=== PATIENT | male | born 1960 | race Caucasian/White ===

== ENCOUNTER → 2018-04-19 02:21 | Outpatient (CLI) | payer MEDICAID, SELFPAY ==
--- NOTE | 2018-04-19 12:43 | DI.REPORT_ITS ---
SYMPTOMS/DIAGNOSIS: KIDNEY STONES, N20.0, F/U STONES FLAT PLATE ABDOMEN: Comparison is 04/17/17. Large portions of the kidneys are obscured by overlying bowel. No urinary tract calculi are seen. There is a large amount of stool throughout the colon suggesting constipation. No organomegaly is seen. The visualized lung bases are clear. Degenerative changes are seen throughout the spine. Arterial calcifications are seen in the pelvis. IMPRESSION: No urinary tract calculi identified.
== END ==
PROVIDERS: PCP Family Medicine; Visit Provider Urology
DX: N20.0 Calculus of kidney (principal); K59.00 Constipation, unspecified
CPT/HCPCS: 74018

== ENCOUNTER 2018-05-20 02:22 | Outpatient (CLI) | payer MEDICAID, SELFPAY ==
[2018-05-20 11:07] LABS: Cholesterol 290 mg/dL (50-200); HDL Cholesterol 46 mg/dL (40-60); LDL CHOLESTEROL 184 mg/dL (<100); Triglyceride 311 mg/dL (30-150)
[2018-05-20 11:17] LABS: Hemoglobin A1C 10.8 % (4.5-6.2)
[2018-05-21 08:58] LABS: PSA, Screening 0.9 ng/ml (0-3.5)
== END 2018-05-20 02:42 ==
PROVIDERS: PCP Family Medicine; Visit Provider Family Medicine
DX: E11.39 Type 2 diabetes mellitus with other diabetic ophthalmic complication (principal); Z12.5 Encounter for screening for malignant neoplasm of prostate; Z13.220 Encounter for screening for lipoid disorders
CPT/HCPCS: 36415; 80061; 83721; 84153; 83036

== ENCOUNTER 2018-12-03 11:13 | Outpatient (CLI) | payer MEDICAID, SELFPAY ==
[2018-12-03 12:46] LABS: Hemoglobin A1C 11.2 % (4.5-6.2)
[2018-12-03 13:20] LABS: Anion Gap 8.9 mmol/L (3-11); BUN 37 mg/dL (7-18); CO2 30.1 mmol/L (21.0-32.0); CREATININE 2.57 mg/dL (0.70-1.30); Calcium 9.4 mg/dL (8.5-10.1); Chloride 97 mmol/L (98-107); Estimated GFR 26.01 (mL/min/1.73m2); Glucose 346 mg/dL (70-100); Potassium 3.9 mmol/L (3.5-5.1); Sodium 136 mmol/L (136-145)
== END 2018-12-03 11:33 ==
PROVIDERS: PCP Family Medicine; Visit Provider Family Medicine
DX: E11.9 Type 2 diabetes mellitus without complications (principal)
CPT/HCPCS: 36415; 80048; 83036

== ENCOUNTER 2019-06-03 10:33 | Outpatient (CLI) | payer MEDICAID, SELFPAY | END 2019-06-03 10:53 | PROVIDERS: PCP Family Medicine; Visit Provider Family Medicine | DX: E11.9 Type 2 diabetes mellitus without complications (principal) | CPT/HCPCS: 36415; 83036 ==

== ENCOUNTER 2021-11-21 11:35 | Emergency (ER) | payer MEDICAID, SELFPAY ==
[2021-11-21 11:50] VITALS: BP 184/92; PULSE 60; RESP 14; TEMP 36.5; O2SAT 98
[2021-11-21 12:09] VITALS: BP 170/82; PULSE 60; RESP 19; TEMP 36.5; O2SAT 97
--- NOTE | 2021-11-21 12:51 | DI.CT_ITS ---
Exam(s) CT HEAD WO EXAM: CT HEAD WO CLINICAL HISTORY: trauma, scalp hematoma. TECHNIQUE: Imaging Protocol: Axial computed tomography images with coronal and sagittal reformatted images were created and reviewed COMPARISON: No exams were available for comparison FINDINGS: There are no skull fractures nor fluid in the visualized paranasal sinuses. Some mucosal thickening is noted in both maxillary sinuses but no associated fluid levels. Of the paranasal sinuses as well as mastoid air cells are clear bilaterally There is no evidence of intracranial hemorrhage, mass effect, or shift of midline structures. There are no extra-axial fluid collections. The ventricles are not enlarged or shifted and there is no blo od within the ventricular system nor within the basal cisterns. Calcification is noted within both vertebral arteries at the skull base. Also within supraclinoid as pects of the internal carotid arteries. IMPRESSION: No acute intracranial findings on this noninfused CT scan of the brain. Vascular calcification in vertebral arteries the skull base is noted. RADIATION DOSE DELIVERED: 718.8mGy.cm Total DLP DATA REPOSITORY: All CT scans at this facility are submitted to the National Radiology Data Registry (NRDR) Dose Index Registry (DIR) with the [employer] ([employer]). RADIATION OPTIMIZATION: All CT scans at this facility use at least one of these dose optimization te chniques: automated exposure control; mA and/or kV adjustment per patient size (includes targeted exa ms where dose is matched to clinical indication); or iterative reconstruction.
[2021-11-21 13:26] VITALS: BP 186/76; PULSE 60; RESP 16; TEMP 36.6; O2SAT 98
[2021-11-21 13:30] VITALS: BP 186/76; PULSE 60; RESP 16; TEMP 36.6; O2SAT 98
--- NOTE | 2021-11-29 12:27 | ED.GENADUL_ITS ---
Discharge Plan Disposition Patient Disposition: HOME Condition: Stable Discharge Details Clinical Impression: Head injury Primary Care Provider: German Chaudhry ED Provider: Yecenia Richter Home Meds and New Rx's Prescriptions: Continued (DME) FreeStyle Lite Strips 1 EACH strip 1 strip Miscellaneous BID AND PRN 0RF Rx Instructions: DX:250. (DME) lancets 1 EACH misc 1 ea Intradermal BID AND PRN 0RF Rx Instructions: DX:250. amlodipine [Norvasc] 5 mg tablet 5 mg PO DAILY Qty: 90 0RF Jardiance 10 mg tablet 10 mg PO DAILY Qty: 90 0RF hydrochlorothiazide 12.5 mg capsule 12.5 mg PO DAILY Qty: 90 0RF glipizide 10 mg tablet 10 mg PO BID Qty: 180 0RF atorvastatin 40 mg tablet 40 mg PO DAILY Qty: 90 0RF Januvia 100 mg tablet 100 mg PO DAILY Qty: 90 0RF metoprolol succinate 100 mg tablet extended release 24 hr 100 mg PO DAILY Qty: 90 0RF Discharge Instructions Instructions: Head Injury (ED) Additional Instructions: Please return immediately to the emergency department if you develop any new or worsening symptoms, if your condition does not improve as expected, or if you become otherwise concerned. It is extremely important that you call soon as possible to make an appointment to be seen in follow-up for this visit by your primary care doctor. Referrals: German Chaudhry MD [Primary Care Provider] - Discharge Data Discharge Date/Time-TO BE ENTERED AT DEPARTURE: 11/21/21 13:30 Medical Decision Making Marty Denis is a 61 y/o man with h/o HLD, HTN, DM presenting to the emergency department with head injury. Pt reports that at approx 9a he was walking on stairs when he backwards 1-2 steps and hit the back of his head on cement. He had no LOC, remembers the event in it's entirety. No vomiting. Was previously well and in his usual state of health. Pt reports that fall was mechanical from stepping wrong and losing his balance, no preceding symptoms. Reports mild headache, states that he came to ED for lasrge bump on the back of his head after fall. Denies any other symptoms: no other pain, fever, SOB, cough, numbness, weakness, vomiting, diarrhea, skin wound or rash. Has been walking and going about his acitivites since fall without issue. On exam she is very well and nontoxic-appearing. There is a large hematoma to the left occiput. No other skin signs of trauma to the face or scalp. No cervical spine tenderness palpation. Moving all extremities equally, walking without issue. Concern for skull fracture, other intracranial trauma, concussi on. Exam/history at this time is not consistent with cervical spine or other spinal injury, significant injury to the thorax or abdomen, significant injury to the extremities, significant injury to the face, nonmechanical etiology of fall e.g. syncope/presyncope/CVA. Plan for CT head. CT head negative. Patient reports that he feels well and would like to go home. I had a discussion with Patient regarding return to emergency department precautions, home care, and importance of outpatient follow-up. Pt verbalizes understanding of the plan and is amenable. Patient discharged to home with clear plan for outpatient follow-up. All questions were answered. Disposition decision was made weighing the risks and benefits of hospitalization versus outpatient treatment, the risk for further decompensation, and the patient's wishes. Medical Records Medical records reviewed: Yes I reviewed the patient's medical records. Imaging Data Radiologic Study: Attestation: I personally reviewed and interpreted this imaging study as follows: Radiologist's impression: EXAM: ? CT HEAD WO CLINICAL HISTORY: ? trauma, scalp hematoma. ? TECHNIQUE:? Imaging Protocol: Axial computed tomography images with coronal and sagittal reformatted images were created and reviewed COMPARISON:? No exams were available for comparison FINDINGS: ?There are no skull fractures nor fluid in the visualized paranasal sinuses.? Some mucosal thickening is noted in both maxillary sinuses but no associated fluid levels.? Of the paranasal sinuses as well as mastoid air cells are clear bilaterally There is no evidence of intracranial hemorrhage, mass effect, or shift of midline structures.? There are no extra-axial fluid collections.? The ventricles are not enlarged or shifted and there is no blood within the ventricular system nor within the basal cisterns. Calcification is noted within both vertebral arteries at the skull base.? Also within supraclinoid aspects of the internal carotid arteries. IMPRESSION: No acute intracranial findings on this noninfused CT scan of the brain. Vascular calcification in vertebral arteries the skull base is noted. HPI General Date/Time Provider Initiated Documentation: 11/21/21 11:55 . Limitations to Documentation: no limitations . Information obtained by: patient, RN notes reviewed and old records reviewed . HPI Narrative: Marty Denis is a 61 y/o man with h/o HLD, HTN, DM presenting to the e mergency department with head injury. Pt reports that at approx 9a he was walking on stairs when he backwards 1-2 steps and hit the back of his head on cement. He had no LOC, remembers the event in it's entirety. No vomiting. Was previously well and in his usual state of health. Pt reports that fall was mechanical from stepping wrong and losing his balance, no preceding symptoms. Reports mild headache, states that he came to ED for lasrge bump on the back of his head after fall. Denies any other symptoms: no other pain, fever, SOB, cough, numbness, weakness, vomiting, diarrhea, skin wound or rash. Has been walking and going about his acitivites since fall without issue. Related Data Home Medications Medication Instructions Recorded Confirmed blood sugar diagnostic (FreeStyle strip 12/24/12 11/25/21 Lite Strips) lancets 28 gauge ea 12/24/12 11/25/21 amlodipine 5 mg tablet (Norvasc) 5 mg PO DAILY #90 tab-cap 10/29/21 11/25/21 empagliflozin 10 mg tablet 10 mg PO DAILY #90 tab 10/29/21 11/25/21 (Jardiance) hydrochlorothiazide 12.5 mg capsule 12.5 mg PO DAILY #90 tab-cap 10/29/21 11/25/21 atorvastatin 40 mg tablet 40 mg PO DAILY #90 tab 11/04/21 11/25/21 glipizide 10 mg tablet 10 mg PO BID #180 tab-cap 11/04/21 11/25/21 metoprolol succinate 100 mg 100 mg PO DAILY #90 tab-cap 11/04/21 11/25/21 tablet,extended release 24 hr sitagliptin 100 mg tablet (Januvia) 100 mg PO DAILY #90 tab-cap 11/04/21 11/25/21 Previous Rx's Medication Instructions Recorded amlodipine 5 mg tablet (Norvasc) 5 mg PO DAILY #90 tab-cap 10/29/21 empagliflozin 10 mg tablet 10 mg PO DAILY #90 tab 10/29/21 (Jardiance) hydrochlorothiazide 12.5 mg capsule 12.5 mg PO DAILY #90 tab-cap 10/29/21 atorvastatin 40 mg tablet 40 mg PO DAILY #90 tab 11/04/21 glipizide 10 mg tablet 10 mg PO BID #180 tab-cap 11/04/21 metoprolol succinate 100 mg 100 mg PO DAILY #90 tab-cap 11/04/21 tablet,extended release 24 hr sitagliptin 100 mg tablet (Januvia) 100 mg PO DAILY #90 tab-cap 11/04/21 Allergies Allergy/AdvReac Type Severity Reaction Status Date / Time No Known Allergies Allergy Verified 11/25/21 10:27 General Stated Complaint: HeadInjury CARLEEN: 3 Review of Systems Narrative: Constitutional: denies fevers Eyes: denies eye pain ENT: denies ear pain, dental pain, sore throat Cardiovascular: denies chest pain, edema Respiratory: denies SOB, cough GI: denies abdominal pain, vomiting, diarrhea : denies flank pain MSK: denies back pain, neck pain, arthralgias, myalgias Skin: denies rash Neuro: denies numbness, weakness, reports mild headache PFSH All Active Problems (Updated 11/21/21 @ 13:24 by Yecenia Richter MD) Head injury (Acute) Vision loss, bilateral (Acute) Well adult (Acute) Noncompliance (Acute) History of cataract removal with insertion of prosthetic lens (Acute) Dermatitis, seborrheic (Chronic) Renal impairment (Chronic 06/30/13) Obesity (Chronic) Nonproliferative diabetic retinopathy (Chronic 07/29/14) Neuropathy in diabetes (Chronic) Hyperlipidemia (Chronic) Hyperkalemia (Chronic 06/30/13) Essential hypertension (Chronic 06/27/13) Diabetes mellitus with ophthalmic manifestations, controlled (Chronic 08/31/08) Kidney stones (Chronic) Medical History (Updated 11/21/21 @ 13:24 by Yecenia Richter MD) kidney stone (09/16/16) Surgical History Extraction of cataract (~01/2009) Family History Sister Migraine Social History Smoking/Tobacco Use Status: Never Smoking risk assessment performed?: Yes Alcohol Intake: current Alcohol Intake frequency: holidays/special occasions only Alcohol type: beer Do you feel safe at home: Yes Do you feel safe in your relationship?: Yes Exam Narrative Exam Narrative: Constitutional: well and [id number], pleasant, conversing normally HENT: head normocephalic, large hematoma noted to left occipital area, no crepitus, no skin wound, mucous membranes moist Eyes: conjunctiva normal, sclera normal, pupils 3mm b/l Neck: no stridor, full painless ROM, trachea midline, no cervical spine or paraspinal tenderness palpation Chest: normal inspection Resp: normal work of breathing, LCTAB Cardio: normal rate, normal rhythm, no murmur appreciated GI: abdomen soft, non-tender, non-distended Back: normal inspection, no rash Skin: warm, dry, normal color, no rash Neuro: alert, not altered, grossly non-focal, normal tone Ext:, Moving all extremities equally Psych: normal mood, normal affect, normal behavior Course Vital Signs Vital signs: Vital Signs Temperature 36.5 C 11/21/21 11:50 Pulse 60 11/21/21 11:50 Respiratory Rate 14 11/21/21 11:50 Blood Pressure 184/92 H 11/21/21 11:50 Pulse Oximetry 98 11/21/21 11:50 Temperature 36.6 C 11/21/21 13:30 Temperature Source Temporal Artery Scan 11/21/21 13:26 Pulse 60 11/21/21 13:30 Respiratory Rate 16 11/21/21 13:30 Respiratory Effort Non-Labored 11/21/21 12:10 Respiratory Depth Normal 11/21/21 11:57 Respiratory Pattern Normal 11/21/21 11:57 Blood Pressure 186/76 H 11/21/21 13:30 Pulse Oximetry 98 11/21/21 13:30 Oxygen Delivery Method Room Air 11/21/21 13:26 Oxygen Flow Rate 0 11/21/21 13:26 Pain Level 0 11/21/21 13:30
== END 2021-11-21 13:30 | disposition home or self-care (01) ==
PROVIDERS: Emergency Provider Student in an Organized Health Care Education/Training Program; PCP Family Medicine
DX: S09.8XXA Other specified injuries of head, initial encounter (principal); W10.8XXA Fall (on) (from) other stairs and steps, initial encounter; S00.03XA Contusion of scalp, initial encounter
CPT/HCPCS: 99284; 70450; 99283

== ENCOUNTER 2021-12-20 02:05 | Outpatient (CLI) | payer MEDICAID, SELFPAY ==
[2021-12-20 11:41] LABS: Anion Gap 11.2 mmol/L (3-11); BUN 70 mg/dL (7-18); CO2 27.8 mmol/L (21.0-32.0); Calcium 8.9 mg/dL (8.5-10.1); Calculated LDL 63 mg/dL (<100); Chloride 105 mmol/L (98-107); Cholesterol 124 mg/dL (<200); Estimated GFR 10.06 (mL/min/1.73m2); Glucose 107 mg/dL (74-106); HDL Cholesterol 48 mg/dL (40-60); Potassium 4.4 mmol/L (3.5-5.1); Sodium 144 mmol/L (136-145); Triglyceride 69 mg/dL (<150)
[2021-12-20 11:53] LABS: CREATININE 5.8 mg/dL (0.70-1.30)
== END 2021-12-20 02:06 | disposition home or self-care (01) ==
LOC: LBO 02:05
PROVIDERS: PCP Family Medicine; Visit Provider Family Medicine
DX: E87.1 Hypo-osmolality and hyponatremia (principal); E78.5 Hyperlipidemia, unspecified
CPT/HCPCS: 36415; 80048; 80061

== ENCOUNTER → 2022-01-04 01:07 | Outpatient (CLI) | payer MEDICAID, SELFPAY ==
--- NOTE | 2022-01-04 07:45 | DI.US_ITS ---
Exam(s) US RENAL EXAM: US RENAL CLINICAL HISTORY: esrd, renal failure, acute on chronic, N17.9, N18.9 TECHNIQUE: Ultrasound of both kidneys performed using standard protocol. COMPARISON: US RENAL ULTRASOUND (P) from 03/04/2009 CT RENAL COLIC WO CONTRAST from 09/16/2016 FINDINGS: RIGHT KIDNEY: Measures 10 cm in length. No cysts evident. Normal cortical thickness and corticomedullary differenti ation .No solid masses There is a 3 millimeter echogenic focus in the lower pole calyx consistent with a small calculus. LEFT KIDNEY: Measures 9.1 cm in length. No cysts evident. Normal cortical thickness and corticomedullary differen tiaion. No solids masses. There is an 8 millimeter echogenic focus towards the upper pole consistent with probable calculus. URINARY BLADDER: Prevoid volume is 181 cc Postvoid volume is 34 cc Prostate gland is mildly enlarged No evidence of bladder mass nor diverticuli. Ureterovesical jets: Not identified IMPRESSION: 1. There is a single echogenic focus in each kidney consistent with bilateral nephrolithiasis. Smal l calculi were also evident in each kidney on the CT scan of August 2016. There is no hydronephrosi s on either side 2. No other focal renal findings. Mildly enlarged prostate gland. No obvious urinary bladder mass. DATA REPOSITORY:
== END ==
PROVIDERS: PCP Family Medicine; Visit Provider Family Medicine
DX: N17.9 Acute kidney failure, unspecified (principal); N18.9 Chronic kidney disease, unspecified; N20.0 Calculus of kidney; N40.0 Benign prostatic hyperplasia without lower urinary tract symptoms
CPT/HCPCS: 76770

== ENCOUNTER 2022-02-23 03:59 | Outpatient (CLI) | payer MEDICAID, SELFPAY ==
[2022-02-23 12:40] LABS: Abs Immature Grans 0.04 10^3/uL (0.0-0.06); Absolute Basophil Count 0.05 10^3/uL (0.0-0.2); Absolute Eosinophil Count 0.56 10^3/uL (0.0-0.7); Absolute Lymphocyte Count 1.36 10^3/uL (1.2-3.4); Absolute Monocyte Count 0.63 10^3/uL (0.1-0.8); Absolute Neutrophil Count 5.48 10^3/uL (1.2-6.7); Basophils % 0.6; COMMENT (LAB VIEW ONLY) 89.17 mg/dL; Eosinophils % 6.9; HCT 32.8 % (40.0-50.0); Immature Grans % 0.5; Lymphocytes % 16.7; MCH 29.1 pg (27.0-33.0); MCHC 33.5 % (32.0-36.0); MCV 87 fL (80-95); MPV 13.9 fL (8.0-11.0); Monocytes % 7.8; Neutrophils % 67.5; Platelet Count 132 10^3/uL (130-400); Prot/Crea Ur Ratio 2.46; RBC 3.78 10^6/uL (4.36-5.78); RDW 12.2 % (11.8-14.1); RDW-SD 38.9 fL; WBC 8.12 10^3/uL (4.4-10.8)
[2022-02-23 12:52] LABS: Albumin 3.9 g/dL (3.4-5.0); Anion Gap 12.1 mmol/L (3-11); CO2 29.9 mmol/L (21.0-32.0); Calcium 9.2 mg/dL (8.5-10.1); Chloride 96 mmol/L (98-107); Glucose 166 mg/dL (74-106); PHOSPHORUS 6.9 mg/dL (2.6-4.7); Potassium 3.3 mmol/L (3.5-5.1); Sodium 138 mmol/L (136-145); Uric Acid 10.5 mg/dL (3.5-7.2)
[2022-02-23 12:59] LABS: BUN 114 mg/dL (7-18)
[2022-02-23 13:00] LABS: CREATININE 8.7 mg/dL (0.70-1.30)
[2022-02-23 22:57] LABS: Parathyroid Hormone,Intact 877 pg/mL (19-88)
== END 2022-02-23 04:00 | disposition home or self-care (01) ==
LOC: LOS 03:59
PROVIDERS: PCP Family Medicine; Visit Provider Internal Medicine Nephrology
DX: N18.5 Chronic kidney disease, stage 5 (principal)
CPT/HCPCS: 36415; 80048; 82040; 82565; 83970; 84100; 84156; 84550; 85025

== ENCOUNTER 2022-03-24 01:07 | Outpatient (CLI) | payer MEDICAID, SELFPAY ==
[2022-03-24 12:46] LABS: Anion Gap 11.8 mmol/L (3-11); CO2 31.2 mmol/L (21.0-32.0); Chloride 96 mmol/L (98-107); Estimated GFR 5.74 (mL/min/1.73m2); Glucose 129 mg/dL (74-106); Potassium 3.9 mmol/L (3.5-5.1); Sodium 139 mmol/L (136-145)
[2022-03-24 12:54] LABS: BUN 105 mg/dL (7-18)
[2022-03-24 12:55] LABS: CREATININE 9.4 mg/dL (0.70-1.30)
[2022-03-24 13:02] LABS: COMMENT (LAB VIEW ONLY) 77.63 mg/dL
[2022-03-24 13:41] LABS: Microalb ug/mg Crea 1128.3 ug/mg Cr
== END 2022-03-24 01:08 | disposition home or self-care (01) ==
LOC: LOS 01:07
PROVIDERS: PCP Family Medicine; Visit Provider Family Medicine
DX: E11.9 Type 2 diabetes mellitus without complications (principal); E87.1 Hypo-osmolality and hyponatremia
CPT/HCPCS: 36415; 80048; 82043; 82570